=== PATIENT | male | born 1955 | race Caucasian/White ===

== ENCOUNTER 2016-07-11 18:27 | Emergency (ER) | payer BC ==
[~2016-07-11] VITALS: Ht 175.3 cm; Wt 100.0 kg
[~2016-07-11 18:27] MED LIST: ASCO1CAP3 PO; CALC-51 PO; CALC500C3 PO; CHOL20005 PO; ESCI1TAB10 PO; LEVO75TA PO; MELA1TAB5 PO; MULT-351 PO; OMEG10007 PO; VITAMIN E PO
[2016-07-11 18:48] VITALS: Ht 175.3 cm; Wt 100.0 kg
[2016-07-11] MEDS ORDERED: HYDROmorphone INJ 1 MG/ML SYR IV STA ×2 (18:53→20:53)
[2016-07-11] MEDS ORDERED: ONDANSETRON INJ 2 MG/ML 2 ML VIAL IV STA (18:53)
[2016-07-11] MEDS ORDERED: SODIUM CHLORIDE 0.9% 1000ML 1,000 ML IV STA (18:53)
--- NOTE | 2016-07-11 19:04 | EMERGENCY ROOM VISIT NOTE ---
History Report prepared by Aletha: Nolan Reynolds Under the Supervision of: Dr. Dex Kulkarni M.D. First contact with patient: 18:50 Chief Complaint: FALL Stated Complaint: NAUSEA,DIZZY,PAIN IN NECK,FALL History of Present Illness The patient is a 61 year old male who presents to the Emergency Room with complaints of head pain secondary to a fall that occurred around 1600 today. Associated symptoms include nausea, neck pain, and bilateral shoulder pain. 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 He reports pushing on a rafter that broke, causing him to fall into a 4-5 foot hole. The patient states that it felt like he hit a rock during the fall. He denies loss of consciousness, abdominal pain or any additional associated symptoms. He also denies taking any medications at this time. Source of History: patient, nursing staff Onset: 1600 Position: head Timing: constant Modifying Factors (Relieving): other (None) Associated Symptoms: + nausea, + neck pain, No LOC Review of Systems See HPI for pertinent positives & negatives. A total of 10 systems reviewed and were otherwise negative. Past Medical & Surgical Medical Problems: (1) Depression (2) Hyperlipidemia (3) Patient denies significant medical history (4) Thyroid disorder Family History No significant family history Social History Smoking Status: Never Smoker Alcohol Use: none Drug Use: none Marital Status: Housing Status: lives with family Current/Historical Medications Scheduled Ascorbic Acid (Vitamin C), 500 MG PO DAILY Calcium Carbonate (Tums), PO DAILY Calcium Carbonate-Vitamin D (Calcium), 1 TAB PO DAILY Cholecalciferol (Vitamin D3), 2,000 UNIT PO DAILY Escitalopram Oxalate (Lexapro), 20 MG PO QPM Fish Oil ([place]-3), 1 CAP PO DAILY Levothyroxine Sodium (Synthroid), 75 MCG PO DAILY Melatonin (Kp Melatonin), 1 TAB PO HS Multiple Vitamin (Multi Vitamin Mens), 1 TAB PO DAILY Vitamin E (Vitamin E 400 Iu), 400 INTER.UNIT PO DAILY Allergies Coded Allergies: Iodine (Verified Allergy, Unknown, IV CONTRAST DYR FOR KIDNEY XRAY-CHEST PRESSURE-G I UPSET-DUSTIN, 07/11/16) Physical Exam Vital Signs Date Time Temp Pulse Resp B/P Pulse Ox O2 Delivery O2 Flow Rate FiO2 07/11/16 21:14 69 16 155/99 93 Nasal Cannula 3.0 07/11/16 20:58 72 18 155/99 97 Nasal Cannula 2.0 07/11/16 20:23 71 18 152/96 97 Room Air 07/11/16 20:20 97 Nasal Cannula 2.0 07/11/16 19:51 75 18 158/105 93 Room Air 07/11/16 19:10 60 07/11/16 18:48 64 16 185/109 97 Room Air Physical Exam GENERAL: Patient is uncomfortable appearing, in moderate distress. HEAD: AT/NC without scalp hematoma. FACE: No deformity, no tenderness. EYES: Pupils equal and reactive. No scleral icterus. Normal EOM. ENT: no hemotympanum, moist mucous membranes, no nasal congestion/hematoma. NECK: C-Collared. Tenderness to palpation of right lateral neck. No stridor, no adenopathy, no step-off of the posterior C-spine, trachea is midline. CHEST: Non-tender, equal chest rise with breath. Clavicles stable/non-tender. LUNGS: Clear to auscultation bilaterally, no wheeze, no rhonchi, breath sounds equal. No dyspnea. HEART: Regular rate and rhythm. No murmurs/gallops/rhonchi appreciated. ABDOMEN: Soft, nontender, bowel sounds positive, no peritonitis. No masses appreciated. BACK: Nontender with palpation, no step-offs. PELVIS: Stable. Non-tender EXTREMITIES: No cyanosis or edema, full range of motion of all the joints without pain or difficulty, no signs for acute trauma. Distal pulses intact. SKIN: Right forehead and right side of face abrasion. NEUROLOGIC: Oriented x 3, no acute motor or sensory deficits, no focal weakness. Medical Decision & Procedures ER Provider Diagnostic Interpretation: Radiology results and stated below per my review and radiologist interpretation: HEAD CT NONCONTRAST CT DOSE: HISTORY: fall right facial injury TECHNIQUE: Multiaxial CT images of the head were performed without the use of intravenous contrast. Automated exposure control was utilized for this study. Comparison: None. Findings: The paranasal sinuses and mastoid air cells are clear. The calvarium and skull base are intact. The ventricles and sulci are within normal limits. There is no mass, hematoma, midline shift, or acute infarct. Mild right frontal scalp swelling. Impression: No acute intracranial abnormality. Right frontal scalp swelling. Electronically signed by: Juan Samson M.D. 07/11/2016 7:33 PM Dictated Date/Time: 07/11/2016 7:29 PM CHEST ONE VIEW PORTABLE HISTORY: trauma, bilateral upper chest pain COMPARISON: Chest 05/10/2011. FINDINGS: The lung apices and left lateral costophrenic sulcus are not included on this study. No definite pneumothorax visualized. There are low lung volumes. The heart is top normal in size. Mild central pulmonary vascular congestion is likely due to the supine image. No focal lung consolidations. No acute rib fractures identified. IMPRESSION: The study is limited from a technical standpoint as described above. However, no definite acute process identified within the chest. Electronically signed by: Juan Samson M.D. 07/11/2016 7:53 PM Dictated Date/Time: 07/11/2016 7:[address] DOSE: 1240.62 mGy.cm HISTORY: fall right neck pain TECHNIQUE: Multiaxial CT images of the cervical spine were performed and reformatted in the sagittal and coronal plane without the use of contrast. COMPARISON: None. FINDINGS: There is a severely displaced type II odontoid fracture. This demonstrates 9 mm of posterior displacement and 1.2 cm of left lateral displacement. This results in severe central canal narrowing and likely cord compression. The remaining cervical spine as well as. There are severe degenerative disc disease at C5-C6 and C6-C7. No pneumothorax. Prevertebral soft tissue swelling at the C1-C2 levels due to the fracture. IMPRESSION: A severely displaced type II odontoid fracture as described above resulting in severe central canal narrowing and likely cord compression. These findings were discussed with Dr. Kulkarni at 7:40 PM on 07/11/2016. Electronically signed by: Juan Samson M.D. 07/11/2016 7:41 PM Dictated Date/Time: 07/11/2016 7:33 PM PELVIS 1 OR 2 VIEW ROUTINE CLINICAL HISTORY: trauma. Fall. COMPARISON STUDY: None. FINDINGS: No fracture or dislocation within the pelvis or hips. The sacrum appears intact. Surgical clips seen within the left groin. Multiple pelvic phleboliths. IMPRESSION: No fracture or dislocation within the pelvis or hips. Electronically signed by: Juan Samson M.D. 07/11/2016 7:51 PM Dictated Date/Time: 07/11/2016 7:50 PM Medications Administered Medications (Trade) Dose Ordered Sig/Teresa Route Start Time Stop Time Status Last Admin Dose Admin Hydromorphone HCl (Dilaudid Inj) 1 mg NOW STAT IV 07/11/16 18:53 07/11/16 18:56 DC 07/11/16 19:03 1 MG Ondansetron HCl 4 mg 4 mg NOW STAT IV 07/11/16 18:53 07/11/16 18:56 DC 07/11/16 19:02 4 MG Sodium Chloride (Nss 1000ml) 1,000 ml @ 999 mls/hr Q1H1M STAT IV 07/11/16 18:53 07/11/16 19:53 DC 07/11/16 19:01 999 MLS/HR Hydromorphone HCl (Dilaudid Inj) 1 mg NOW STAT IV 07/11/16 20:53 07/11/16 20:54 DC 07/11/16 20:57 1 MG ED Course 1849: The patient was evaluated in room A1. A complete history and physical exam was performed. 1852: Ordered Sodium Chloride 1,000 ml @ 999 mls/hr IV, Zofran Injection 4 mg IV , Dilaudid Injection 1 mg IV. 1914: I reevaluated the patient, he is stable. 1929: Upon review of the Cervical Spine CT, I requested [facility] be placed on standby. 1931: Repeat neurological exam shows no deficit. Patient is in same state as he was upon arrival. 1941: I updated the patient's family. 1953: I spoke with [facility] transfer team. Both of [facility] helicopters are currently active. I will talk to [facility] team. 2002: Patient is getting Goetz placed at this time. He is stable. 2003: Discussed the patient's case with Dr. Elam ([facility]) and Dr. Bernaeb ([facility]). The patient will be evaluated for further treatment and disposition at [facility]. 2006: We are still attempting to get air transport at this time. 2007: I spoke with [facility]. They accept transferring the patient. 2019: [facility] minutes away. 2037: The patient is stable at this time. No neural deficits. 2051: [facility] another [facility] blocking [facility] [place] go [facility] at [facility] while waiting. 2052: Ordered Dilaudid Injection 1 mg IV. 2055: Discussed the transport situation with case management. 2099: The patient is stable at this time. 2115: Reevaluated the patient. We are still awaiting transport logistics. 2127: Preparing patient for transport. 2135: The patient left by helicopter to [facility]. Medical Decision Differential: Intracranial Injury, Cervical Injury, Intrathoracic/Abdominal Injury, Neurologic Injuries, Fractures/Dislocations, Lacerations, Tetanus Status , amongst other pathologies entertained. 61 yr old male with relatively short fall of ~5 ft while working on greenhouse. Admits he struck what he thought was a rock and denies LOC. Actually walking around at home for some time prior to family convincing him to come in to ED. Placed in [place] by nursing on arrival in triage and brought to A1. Initial exam with TTP over right lateral neck though denies midline neck TTP. GCS 15 with head trauma to right side of face. Initial trauma exam clear and sent to CT emergently for further evaluation. CXR/Pelv clear. CT head clear. CT neck with severe type 2 odontoid with posterior left displacement. FAST negative. No labs indicated as he needs emergent transfer and has stable vitals. Immediately placed call to [facility] for emergent trauma eval. Many repeat evaluation without findings of any neuro deficits. Discussed at length with family and patient the severity of his injury, and the remarkable fact he has no current neuro deficits. Goetz placed to avoid having patient move though without any perineal deficits. Patient accepted to [facility] for trauma. Patient stable throughout entire stay with no issues other than pain/discomfort for which dilaudid worked well. NPO kept. No blood thinner use. Patient was in ED for a prolonged period of time second to un-avoidable delays with transfer as Helicopters not available and several other severely critical patients transferring at same exact time. Throughout this all I keep close monitor on patient with frequent neuro checks. Consults Time Called: 1956 Consulting Physician: Dr. Elam ([facility])/ Dr. Bernabe ([facility]) Returned Call: 2003 Discussed the patient's case with Dr. Elam ([facility])/ Dr. Bernabe ( [facility]). The patient will be evaluated for further treatment and disposition. Impression Primary Impression: Type II fracture of odontoid process Additional Impressions: Fall Facial contusion Critical Care I have personally spent greater than 90 minutes of critical care time in the direct management of this patient. This was a life/limb threatening event. This includes time spent evaluating patient, direct bedside care, chart review, placing orders, interpretation of diagnostic studies, discussion with consultants, patient, and family members, as well as other required patient management activities. This 90 minutes is in excess of all separately billable procedures. Scribe Attestation The scribe's documentation has been prepared under my direction and personally reviewed by me in its entirety. I confirm that the note above accurately reflects all work, treatment, procedures, and medical decision making performed by me. Departure Information Dispostion Transfer Acute Care Facility Referrals Joyce Gonzalez C.R.N.P. (PCP) Patient Instructions My [facility] Problem Qualifiers Primary Impression: Type II fracture of odontoid process Encounter type: initial encounter Fracture type: closed Fracture alignment : posteriorly displaced Qualified Codes: S12.111A - Posterior displaced type ii dens fracture, initial encounter for closed fracture Additional Impressions: Fall Encounter type: initial encounter Qualified Codes: W19.XXXA - Unspecified fall, initial encounter Facial contusion Encounter type: initial encounter Qualified Codes: S00.83XA - Contusion of other part of head, initial encounter
--- NOTE | 2016-07-11 19:35 | DIAGNOSTIC IMAGING REPORT ---
HEAD CT NONCONTRAST CT DOSE: HISTORY: fall right facial injury TECHNIQUE: Multiaxial CT images of the head were performed without the use of intravenous contrast. Automated exposure control was utilized for this study. Comparison: None. Findings: The paranasal sinuses and mastoid air cells are clear. The calvarium and skull base are intact. The ventricles and sulci are within normal limits. There is no mass, hematoma, midline shift, or acute infarct. Mild right frontal scalp swelling. Impression: No acute intracranial abnormality. Right frontal scalp swelling. Electronically signed by: Juan Samson M.D. 07/11/2016 7:33 PM Dictated Date/Time: 07/11/2016 7:29 PM
[2016-07-11] MEDS ORDERED: VITA400C3 PO (19:40)
--- NOTE | 2016-07-11 19:44 | DIAGNOSTIC IMAGING REPORT ---
CERVICAL SPINE CT CT DOSE: 1240.62 mGy.cm HISTORY: fall right neck pain TECHNIQUE: Multiaxial CT images of the cervical spine were performed and reformatted in the sagittal and coronal plane without the use of contrast. COMPARISON: None. FINDINGS: There is a severely displaced type II odontoid fracture. This demonstrates 9 mm of posterior displacement and 1.2 cm of left lateral displacement. This results in severe central canal narrowing and likely cord compression. The remaining cervical spine as well as. There are severe degenerative disc disease at C5-C6 and C6-C7. No pneumothorax. Prevertebral soft tissue swelling at the C1-C2 levels due to the fracture. IMPRESSION: A severely displaced type II odontoid fracture as described above resulting in severe central canal narrowing and likely cord compression. These findings were discussed with Dr. Kulkarni at 7:40 PM on 07/11/2016. Electronically signed by: Juan Samson M.D. 07/11/2016 7:41 PM Dictated Date/Time: 07/11/2016 7:33 PM
--- NOTE | 2016-07-11 19:54 | DIAGNOSTIC IMAGING REPORT ---
PELVIS 1 OR 2 VIEW ROUTINE CLINICAL HISTORY: trauma. Fall. COMPARISON STUDY: None. FINDINGS: No fracture or dislocation within the pelvis or hips. The sacrum appears intact. Surgical clips seen within the left groin. Multiple pelvic phleboliths. IMPRESSION: No fracture or dislocation within the pelvis or hips. Electronically signed by: Juan Samson M.D. 07/11/2016 7:51 PM Dictated Date/Time: 07/11/2016 7:50 PM
--- NOTE | 2016-07-11 19:55 | DIAGNOSTIC IMAGING REPORT ---
CHEST ONE VIEW PORTABLE HISTORY: trauma, bilateral upper chest pain COMPARISON: Chest 05/10/2011. FINDINGS: The lung apices and left lateral costophrenic sulcus are not included on this study. No definite pneumothorax visualized. There are low lung volumes. The heart is top normal in size. Mild central pulmonary vascular congestion is likely due to the supine image. No focal lung consolidations. No acute rib fractures identified. IMPRESSION: The study is limited from a technical standpoint as described above. However, no definite acute process identified within the chest. Electronically signed by: Juan Samson M.D. 07/11/2016 7:53 PM Dictated Date/Time: 07/11/2016 7:52 PM
[2016-07-11 20:20] VITALS: O2SAT 97
[2016-07-11 21:14] VITALS: BP 155/99; PULSE 69; O2SAT 93
== END 2016-07-11 21:40 | disposition short-term general hospital (02) ==
LOC: C.EDB 18:28 → C.ED 21:40
DX: S12.9XXA Fracture of neck, unspecified, initial encounter (principal); S00.83XA Contusion of other part of head, initial encounter; W11.XXXA Fall on and from ladder, initial encounter; Y92.89 Other specified places as the place of occurrence of the external cause; R42 Dizziness and giddiness; R11.0 Nausea

== ENCOUNTER 2017-03-03 18:41 | Emergency (ER) | payer BC ==
[~2017-03-03] VITALS: Ht 175.3 cm; Wt 97.7 kg
[~2017-03-03 18:41] MED LIST changes: +VITA400C3 PO; -VITAMIN E PO
[2017-03-03 18:46] VITALS: Ht 175.3 cm; Wt 97.7 kg
[2017-03-03] MEDS ORDERED: KETOROLAC TROMETHAMINE 30 MG/ML VIAL IV STA (18:58)
[2017-03-03] MEDS ORDERED: SODIUM CHLORIDE 0.9% 500ML 500 ML IV STA (18:58)
--- NOTE | 2017-03-03 18:58 | EMERGENCY ROOM VISIT NOTE ---
History Report prepared by Aletha: Catia Rader Under the Supervision of: Dr. Lm Monique M.D. First contact with patient: 18:49 Chief Complaint: FEVER Stated Complaint: DIZZY, DRY, FEVER, CHILLS, UPSET STOMACH History of Present Illness The patient is a 61 year old male who presents to the Emergency Room with complaints of a constant fever beginning 1 week ago. The patient states that he has been feeling dizzy and dehydrated. He reports that he has had a fever of 101 and has been feeling nauseous. He notes that he had diarrhea for 1 week but it has now resolved. The patient complains of a cough, sore throat, and groin pain. He denies any abdominal pain. He reports that he has a history of hernia in the groin area. Source of History: patient Onset: 1 week ago Position: other (global) Symptom Intensity: 101 Quality: other (fever) Timing: constant Associated Symptoms: + sorethroat, + cough, + nausea, No abdominal pain Note: Pt complains of dizziness and dehydration. Review of Systems See HPI for pertinent positives & negatives. A total of 10 systems reviewed and were otherwise negative. Past Medical & Surgical Medical Problems: (1) Depression (2) Hyperlipidemia (3) Patient denies significant medical history (4) Thyroid disorder Family History No significant family history Social History Smoking Status: Never Smoker Alcohol Use: none Drug Use: none Marital Status: Housing Status: lives with family Current/Historical Medications Scheduled Amoxicillin & Pot Clavulanate (Augmentin 875-125 mg), 1 TAB PO BID Ascorbic Acid (Vitamin C), 500 MG PO DAILY Calcium Carbonate (Tums), 500 MG PO DAILYBB Calcium Carbonate-Vitamin D (Calcium), 1 TAB PO DAILY Cholecalciferol (Vitamin D3), 2,000 UNIT PO DAILY Escitalopram Oxalate (Lexapro), 20 MG PO QPM Famotidine (Pepcid), 40 MG PO HS Fish Oil ([place]-3), 1 CAP PO DAILY Levothyroxine Sodium (Synthroid), 75 MCG PO DAILY Melatonin (Kp Melatonin), 1 TAB PO HS Multiple Vitamin (Multi Vitamin Mens), 1 TAB PO DAILY Vitamin E (Vitamin E 400 Iu), 400 INTER.UNIT PO DAILY Allergies Coded Allergies: Iodinated Diagnostic Agents (Unverified Allergy, Unknown, UNKNOWN, ) Iodine (Verified Allergy, Unknown, IV CONTRAST DYR FOR KIDNEY XRAY-CHEST PRESSURE-G I UPSET-DUSTIN, 03/03/17) Physical Exam Vital Signs Date Time Temp Pulse Resp B/P (MAP) Pulse Ox O2 Delivery O2 Flow Rate FiO2 03/03/17 21:48 36.6 97 18 93/59 Room Air 03/03/17 20:24 99 22 111/64 97 Nebulizer 03/03/17 19:36 86 03/03/17 19:29 97 Room Air 03/03/17 19:23 88 22 95 Room Air 03/03/17 18:46 36.7 90 18 135/80 94 Room Air Physical Exam GENERAL: Patient is a healthy-appearing well-nourished [] HEAD: Normocephalic atraumatic EYES: Ocular movements intact pupils equal and react to light OROPHARYNX mucous membranes are moist no exudates present no erythema or edema present NECK: Supple no nuchal rigidity CHEST: Good equal expansion LUNGS: Clear and equal to auscultation CARDIAC: Normal S1 and S2 ABDOMEN: Soft nontender no guarding BACK: No CVA tenderness EXTREMITIES: No pain upon palpation normal muscle strength in all groups no clubbing cyanosis or edema NEURO: Patient is following commands and answering questions appropriately. Alert and oriented x3. No evidence of meningitis or encephalitis on exam. Cranial Nerves 2-12 grossly intact Medical Decision & Procedures ER Provider Diagnostic Interpretation: Radiology results as stated below per my review and radiologist interpretation: CHEST ONE VIEW PORTABLE FINDINGS: Cardiomediastinal silhouette normal. Lungs and pleural spaces clear. Degenerative changes of the right acromioclavicular joint area Upper abdomen normal. IMPRESSION: 1. No acute cardiopulmonary disease. Electronically signed by: Dino Barrera M.D. 03/03/2017 7:21 PM Dictated Date/Time: 03/03/2017 7:20 PM ABD/PELVIS NO IV OR ORAL CONT FINDINGS: Receiver Stocker topogram: Unremarkable. Lung bases: Extensive dependent consolidation in the bilateral lower lobes. Normal heart size. No pericardial or pleural effusion. Liver: Normal morphology. Density consistent with hepatic steatosis. Subcentimeter hypodensity in the left hepatic lobe likely cysts but incompletely characterized without contrast. Biliary: No gross biliary ductal dilatation allowing for noncontrast technique. Gallbladder contains gallstones. Pancreas: Mild parenchymal atrophy. Spleen: Top normal in size. Adrenal glands: Normal noncontrast appearance. Kidneys and ureters: Few cystic lesions in the left renal pelvis likely parapelvic cysts. No hydronephrosis. No nephrolithiasis. Mild nonspecific perinephric fat stranding. Bladder: Circumferential wall thickening allowing for under distention. Pelvic organs: Prostate enlargement likely secondary to benign prostatic hyperplasia. Bowel: Normal. No bowel obstruction. Peritoneal cavity: No free fluid or intraperitoneal gas. Lymph nodes: No gross lymphadenopathy allowing for noncontrast technique. Few prominent lymph nodes in the portacaval region, possibly reactive. Vasculature: Atherosclerosis of the normal caliber abdominal aorta. Abdominal wall: Diastasis of the rectus abdominis. Evidence of prior left inguinal hernia repair with renal herniation of fat. Musculoskeletal: Lucent lesion in the right ilium subjacent to the sacroiliac joint is nonaggressive appearing and may be posttraumatic or degenerative in etiology. Degenerative changes of the lower lumbar spine. IMPRESSION: 1. Mild circumferential bladder wall thickening could suggest chronic outlet obstruction in the setting of prostatomegaly. 2. No nephrolithiasis or hydronephrosis. 3. Extensive dependent consolidation in the lower lobes. This could represent atelectasis or less likely chronic aspiration. 4. Recurrent left inguinal hernia. 5. Hepatic steatosis. Electronically signed by: Dino Barrera M.D. 03/03/2017 8:32 PM Dictated Date/Time: 03/03/2017 8:23 PM Laboratory Results 03/03/17 19:05 Red Blood Count 5.12, Mean Corpuscular Volume 81.1, Mean Corpuscular Hemoglobin 27.7, Mean Corpuscular Hemoglobin Concent 34.2, Mean Platelet Volume 10.1 03/03/17 19:05 Test 03/03/17 00:00 03/03/17 15:05 03/03/17 19:05 03/03/17 21:10 Influenza Type A (RT-PCR) Neg for Influ A (NEG) Influenza Type A Antigen Neg for Influ A (NEG) Influenza Type B Antigen Neg for Influ B (NEG) Influenza Type B (RT-PCR) Neg for Influ B (NEG) Monoscreen POS (NEG) White Blood Count 6.97 K/uL (4.8-10.8) Red Blood Count 5.12 M/uL (4.7-6.1) Hemoglobin 14.2 g/dL (14.0-18.0) Hematocrit 41.5 % (42-52) Mean Corpuscular Volume 81.1 fL (80-100) Mean Corpuscular Hemoglobin 27.7 pg (25-34) Mean Corpuscular Hemoglobin Concent 34.2 g/dl (32-36) Platelet Count 187 K/uL (130-400) Mean Platelet Volume 10.1 fL (7.4-10.4) RDW Standard Deviation 43.7 fL (36.4-46.3) RDW Coefficient of Variation 14.8 % (11.5-14.5) Neutrophils % (Manual) 46.1 % Lymphocytes % (Manual) 21.2 % Variant Lymphocytes % (manual) 27.4 % Monocytes % (Manual) 5.3 % Neutrophils # (Manual) 3.21 K/uL (1.4-6.5) Total Absolute Neutrophils 3.21 K/uL (1.4-6.5) Lymphocytes # (Manual) 1.48 K/uL (1.2-3.4) Absolute Variant Lymphocytes 1.91 K/uL Total Absolute Lymphocytes 3.39 K/uL (1.2-3.4) Monocytes # (Manual) 0.37 K/uL (0.11-0.59) Microcytosis PRESENT Echinocytes 1+ Anion Gap 4.0 mmol/L (3-11) Est Creatinine Clear Calc Drug Dose 84.7 ml/min Estimated GFR () 87.0 Estimated GFR (Non- 75.1 BUN/Creatinine Ratio 9.0 (10-20) Calcium Level 8.7 mg/dl (8.5-10.1) Total Bilirubin 0.6 mg/dl (0.2-1) Direct Bilirubin 0.2 mg/dl (0-0.2) Aspartate Amino Transf (AST/SGOT) 48 U/L (15-37) Alanine Aminotransferase (ALT/SGPT) 72 U/L (12-78) Alkaline Phosphatase 132 U/L (45-117) Total Protein 7.9 gm/dl (6.4-8.2) Albumin 3.3 gm/dl (3.4-5.0) Urine Color DK YELLOW Urine Appearance CLOUDY (CLEAR) Urine pH 5.0 (4.5-7.5) Urine Specific [place] 1.023 (1.000-1.030) Urine Protein TRACE (NEG) Urine Glucose (UA) NEG (NEG) Urine Ketones TRACE (NEG) Urine Occult Blood NEG (NEG) Urine Nitrite NEG (NEG) Urine Bilirubin NEG (NEG) Urine Urobilinogen NEG (NEG) Urine Leukocyte Esterase TRACE (NEG) Urine WBC (Auto) 5-10 /hpf (0-5) Urine RBC (Auto) 0-4 /hpf (0-4) Urine Hyaline Casts (Auto) 5-10 /lpf (0-5) Urine Epithelial Cells (Auto) 20-30 /lpf (0-5) Urine Bacteria (Auto) NEG (NEG) Urine Crystals CALCIUM OXALATE (NONE Labs reviewed by ED physician. Medications Administered Medications (Trade) Dose Ordered Sig/Teresa Route Start Time Stop Time Status Last Admin Dose Admin Albuterol/ Ipratropium (Duoneb) 12 ml ONE ONCE INH 03/03/17 19:00 03/03/17 19:04 DC 03/03/17 19:23 12 ML Ketorolac Tromethamine (Toradol Inj) 30 mg NOW STAT IV 03/03/17 18:58 03/03/17 19:04 DC 03/03/17 19:26 30 MG Sodium Chloride 500 ml @ 999 mls/hr Q31M STAT IV 03/03/17 18:58 03/03/17 19:28 DC 03/03/17 19:25 999 MLS/HR Levofloxacin (Levaquin Tab) 750 mg NOW STAT PO 03/03/17 20:51 03/03/17 20:52 DC 03/03/17 21:02 750 MG Amoxicillin/ Clavulanate Potassium (Augmentin Tab) 875 mg ONE ONCE PO 03/03/17 21:30 03/03/17 21:31 DC 03/03/17 21:53 875 MG Amoxicillin/ Clavulanate Potassium (Augmentin Tab) 875 mg BID ONCE PO 03/04/17 09:00 03/04/17 09:00 DC 03/03/17 21:55 875 MG Albuterol (Ventolin Hfa Inhaler) 2 puffs NOW STAT INH 03/03/17 21:23 03/03/17 21:25 DC 03/03/17 21:52 2 PUFFS ED Course 1849: Past medical records reviewed. The patient was evaluated in room B8. A complete history and physical examination was performed. 1858: Sodium Chloride 500 ml @ 999 mls/hr IV, Toradol Inj 30mg IV. 1899: Duoneb 12ml INH. 2050: Levofloxacin 750mg PO. 2122: Albuterol 2 puffs INH. 2129: Augmentin Tab 875mg PO. 2135: Upon reexamination the patient is doing well. I discussed results and treatment plan with the patient. He verbalizes agreement and understanding. The patient is ready for discharge. 0900: Augmentin Tab 875mg PO. Medical Decision Differential diagnosis: Etiologies such as viral syndrome, otitis, pharyngitis, pneumonia, influenza, meningitis, urinary tract infection, sepsis, bacteremia, as well as others were entertained. This is a 61-year-old male who presents emergency department complaining of several weeks of cough and fever. The patient was given a DuoNeb breathing treatment in the emergency department. In addition the patient is negative for flu. The patient was also complaining of abdominal pain therefore he was sent for CAT scan of the abdomen and pelvis. This was concerning for possible aspiration pneumonia. Based on this finding I did place the patient on Augmentin as well as a DuoNeb. After the patient was discharged it was revealed that the patient had a positive mono test. Therefore the patient was contacted and told to avoid Augmentin as this may cause a rash when being positive for mono. I do feel the patient as well as to be discharged home however stressed the need for follow-up with the patient's primary care physician. Patient was in agreement with the treatment plan. Medication Reconcilliation Current Medication List: was personally reviewed by me Blood Pressure Screening Patient's blood pressure: Elevated blood pressure Blood pressure disposition: Elevated BP felt to be situational Impression Primary Impression: Fever Additional Impressions: Pneumonia Mononucleosis Scribe Attestation The scribe's documentation has been prepared under my direction and personally reviewed by me in its entirety. I confirm that the note above accurately reflects all work, treatment, procedures, and medical decision making performed by me. Departure Information Dispostion Home / Self-Care Prescriptions Famotidine (Pepcid) 40 Mg Tab 40 MG PO HS for 30 Days, #30 TAB Prov: Lm Monique MD 03/03/17 Amoxicillin & Pot Clavulanate (Augmentin 875-125 mg) 1 Tab Tab 1 TAB PO BID for 10 Days, #20 TAB Prov: Lm Monique MD 03/03/17 Referrals No Doctor, Assigned (PCP) Patient Instructions My [facility] [employer] Additional Instructions Use inhaler twice every 6 hours Take 5 ml Maalox before every meal and at bedtime Follow up with DR Tsai's office for Reflux You were found to have an elevated blood pressure today (>120 sytolic or >90 diastolic). Per medicare guidelines, you need to follow up with this blood pressure screening with your Primary Care Physician (PCP). For a new PCP call [phone]. You have been examined and treated today on an emergency basis only. This is not a substitute for, or an effort to provide, complete comprehensive medical care. It is impossible to recognize and treat all injuries or illnesses in a single emergency department visit. It is therefore important that you follow up closely with your PCP. Call as soon as possible for an appointment. Thank you for your time and consideration. I look forward to speaking with you again soon. Please don't hesitate to call us if you have any questions. Problem Qualifiers Primary Impression: Fever Fever type: drug-induced Qualified Codes: R50.2 - Drug induced fever Additional Impressions: Pneumonia Pneumonia type: due to unspecified organism Laterality: bilateral Lung location: unspecified part of lung Qualified Codes: J18.9 - Pneumonia, unspecified organism
[2017-03-03] MEDS ORDERED: ALBUT/IPRATROP 3MG/0.5MG NEB 3 ML VIAL INH ONE (19:00)
[2017-03-03 19:21] LABS: HEMATOCRIT 41.5 % (42-52); MEAN CELL VOLUME 81.1 fL (80-100); MEAN CORPUSCULAR HEMOGLOBIN 27.7 pg (25-34); MEAN CORPUSCULAR HGB CONC 34.2 g/dl (32-36); MEAN PLATELET VOLUME 10.1 fL (7.4-10.4); PLATELET COUNT 187 K/uL (130-400); RED BLOOD COUNT 5.12 M/uL (4.7-6.1); WHITE BLOOD COUNT 6.97 K/uL (4.8-10.8)
--- NOTE | 2017-03-03 19:22 | DIAGNOSTIC IMAGING REPORT ---
CHEST ONE VIEW PORTABLE CLINICAL HISTORY: 61 years-old Male presenting with Pt c/o cough. TECHNIQUE: Portable upright AP view of the chest was obtained. COMPARISON: 07/11/2016. FINDINGS: Cardiomediastinal silhouette normal. Lungs and pleural spaces clear. Degenerative changes of the right acromioclavicular joint area Upper abdomen normal. IMPRESSION: 1. No acute cardiopulmonary disease. Electronically signed by: Dino Barrera M.D. 03/03/2017 7:21 PM Dictated Date/Time: 03/03/2017 7:20 PM
[2017-03-03 19:23] VITALS: PULSE 88; O2SAT 95
[2017-03-03 19:29] VITALS: O2SAT 97
[2017-03-03 19:52] LABS: CALCIUM 8.7 mg/dl (8.5-10.1); CREATININE 1.07 mg/dl (0.60-1.40); POTASSIUM 3.9 mmol/L (3.5-5.1)
[2017-03-03 20:14] LABS: COMPLETE YES; ECHINOCYTES 1+; LYMPH ABS # 1.48 K/uL (1.2-3.4); LYMPHOCYTE % 21.2 %; MICROCYTOSIS PRESENT; NEUTROPHILS % 46.1 %; VARIANT LYM ABS # 1.91 K/uL; VARIANT LYMPHOCYTE % 27.4 %
[2017-03-03 20:24] VITALS: O2SAT 97
--- NOTE | 2017-03-03 20:33 | DIAGNOSTIC IMAGING REPORT ---
ABD/PELVIS NO IV OR ORAL CONT CLINICAL HISTORY: 61 years-old Male presenting with Pt c/o B/l flank pain . TECHNIQUE: Multidetector CT of the abdomen and pelvis was performed without the use of intravenous contrast. IV contrast: None. A dose lowering technique was used consistent with the principles of ALARA (as low as reasonably achievable). COMPARISON: None. CT DOSE (mGy.cm): The estimated cumulative dose is 849.69 mGy.cm. FINDINGS: Mental Health Counselor topogram: Unremarkable. Lung bases: Extensive dependent consolidation in the bilateral lower lobes. Normal heart size. No pericardial or pleural effusion. Liver: Normal morphology. Density consistent with hepatic steatosis. Subcentimeter hypodensity in the left hepatic lobe likely cysts but incompletely characterized without contrast. Biliary: No gross biliary ductal dilatation allowing for noncontrast technique. Gallbladder contains gallstones. Pancreas: Mild parenchymal atrophy. Spleen: Top normal in size. Adrenal glands: Normal noncontrast appearance. Kidneys and ureters: Few cystic lesions in the left renal pelvis likely parapelvic cysts. No hydronephrosis. No nephrolithiasis. Mild nonspecific perinephric fat stranding. Bladder: Circumferential wall thickening allowing for under distention. Pelvic organs: Prostate enlargement likely secondary to benign prostatic hyperplasia. Bowel: Normal. No bowel obstruction. Peritoneal cavity: No free fluid or intraperitoneal gas. Lymph nodes: No gross lymphadenopathy allowing for noncontrast technique. Few prominent lymph nodes in the portacaval region, possibly reactive. Vasculature: Atherosclerosis of the normal caliber abdominal aorta. Abdominal wall: Diastasis of the rectus abdominis. Evidence of prior left inguinal hernia repair with renal herniation of fat. Musculoskeletal: Lucent lesion in the right ilium subjacent to the sacroiliac joint is nonaggressive appearing and may be posttraumatic or degenerative in etiology. Degenerative changes of the lower lumbar spine. IMPRESSION: 1. Mild circumferential bladder wall thickening could suggest chronic outlet obstruction in the setting of prostatomegaly. 2. No nephrolithiasis or hydronephrosis. 3. Extensive dependent consolidation in the lower lobes. This could represent atelectasis or less likely chronic aspiration. 4. Recurrent left inguinal hernia. 5. Hepatic steatosis. Electronically signed by: Dino Barrera M.D. 03/03/2017 8:32 PM Dictated Date/Time: 03/03/2017 8:23 PM
[2017-03-03 20:41] LABS: INFLUENZA A PCR Neg for Influ A (NEG); INFLUENZA B PCR Neg for Influ B (NEG)
[2017-03-03] MEDS ORDERED: LEVOFLOXACIN 250 MG TAB PO STA (20:51)
[2017-03-03] MEDS ORDERED: ALBUTEROL HFA 8 GM INHALER INH STA (21:23)
[2017-03-03] MEDS ORDERED: AMOX875T PO (21:25)
[2017-03-03] MEDS ORDERED: FAMO40TA6 PO (21:27)
[2017-03-03] MEDS ORDERED: AMOXICILLIN/CLAVULANATE TAB 875 MG TAB PO ONE (21:30)
[2017-03-03 21:47] LABS: URINE APPEARANCE CLOUDY (CLEAR); URINE BILIRUBIN NEG (NEG); URINE COLOR DK YELLOW; URINE EPITHELIAL CELL AUTO 20-30 /lpf (0-5); URINE NITRITE NEG (NEG); URINE SPECIFIC GRAVITY 1.023 (1.000-1.030); UROBILINOGEN NEG (NEG)
[2017-03-03] MEDS ORDERED: EMPTY 8 DRAM VIAL ONE (21:47)
[2017-03-03 21:48] VITALS: BP 93/59; PULSE 97; TEMP 36.6
[2017-03-03 21:50] LABS: MANUAL MICROSCOPIC REQUIRED? NO; REVIEW REQ? YES
[2017-03-03] MEDS: AMOXICILLIN/CLAVULANATE TAB 875 MG TAB PO ONE ×2 (21:54→21:55)
[2017-03-06 16:40] LABS: BORDETELLA PERTUSSIS SOURCE Swab
== END 2017-03-03 22:03 | disposition home or self-care (01) ==
LOC: C.EDB 18:42
DX: J18.9 Pneumonia, unspecified organism (principal); B27.90 Infectious mononucleosis, unspecified without complication; F32.9 Major depressive disorder, single episode, unspecified; E78.5 Hyperlipidemia, unspecified